=== PATIENT | female | born 1970 | race Caucasian/White ===

== ENCOUNTER → 2022-04-26 12:31 | Outpatient (CLI) | payer SELFPAY ==
[2022-04-30 07:19] LABS: QuantiFERON Mitogen Value >10.00 IU/mL (.); QuantiFERON Nil Value 0.03 IU/mL (.); QuantiFERON TB Gold Plus Negative (Negative); QuantiFERON TB1 Ag Value 0.05 IU/mL (.); QuantiFERON TB2 Ag Value 0.08 IU/mL (.)
== END ==
DX: Z02.1 Encounter for pre-employment examination (principal)
CPT/HCPCS: 36415; 86480

== ENCOUNTER → 2022-05-23 16:15 | Outpatient (CLI) | payer OTHER, SELFPAY ==
--- NOTE | 2022-05-23 | DI.MG.S_ITS ---
BILATERAL DIGITAL SCREENING MAMMOGRAM 3D/2D WITH CAD: 05/23/2022 CLINICAL: Routine screening. Comparison is made to exams dated: 05/23/2022 mammogram - [facility], 05/11/2021 mammogram, and 02/16/2020 mammogram - outside location. Both breasts are almost entirely fatty (category a/<25% glandular tissue). Current study was also evaluated with a Computer Aided Detection (CAD) system. No significant masses, calcifications, or other findings are seen in either breast. There has been no significant interval change. IMPRESSION: NEGATIVE There is no mammographic evidence of malignancy. A 1 year screening mammogram is recommended. Based on the Tyrer Cuzick model (a risk assessment model) the patient's lifetime risk is 6.3% and her 10 year risk is 1.6%. According to the ACR, ACS, and NCCN guidelines, an annual breast MRI exam along with mammogram is recommended if the patient's lifetime risk is 20% or greater. This exam was interpreted at Station ID: [id number]. NOTE: For mammograms, a report in lay terms will be sent to the patient. Approximately 15% of breast malignancies will not be visualized mammographically. In the management of a palpable breast mass, a negative mammogram must not discourage biopsy of a clinically suspicious lesion. Electronically Signed By: Genie pastor/leonie:05/24/2022 16:08:04 letter sent: Normal Exam ACR BI-RADS Category 1: Negative 3341F
== END ==
PROVIDERS: PCP Family Medicine; Referring Provider Family Medicine; Visit Provider Family Medicine
DX: Z12.31 Encounter for screening mammogram for malignant neoplasm of breast (principal)
CPT/HCPCS: 77063; 77067

== ENCOUNTER 2022-08-29 06:22 | Emergency (ER) | payer OTHER, SELFPAY ==
[2022-08-29] VITALS (14 sets, daily range): BP systolic 110–130; BP diastolic 55–77; PULSE 56–89; RESP 7–48; TEMP 36.6; O2SAT 99–100; BMI 28.7
--- NOTE | 2022-08-29 06:23 | ED_ITS ---
HPI - General Adult <Julia Barnes MD - Last Filed: 08/29/22 18:05> General Chief complaint: Abdominal Pain Stated complaint: upper abd pain and chest pain Time Seen by Provider: 08/29/22 06:23 History of Present Illness HPI narrative: 50-year-old woman perimenopause, currently on Cymbalta presents with abdominal/chest pain starting in the epigastrium radiating up into the right side of her chest and through to her back. She describes it as sharp and quite uncomfortable currently an 8/10. She isn't particularly nauseated but she will have episodes where she simply gets up and vomits. She finds that standing up and leaning forward seems to help with the pain. Exertion does not make it worse. She is had similar episodes in the past and in April of this year was at [facility] and had a stress test and a stress echo and was given a clean bill of health from her hvac service tech with recommends to follow-up with GI. She has not yet done so. She notes that she is had 2 episodes of chest pain similar to this in 2022 this time being the most severe and certainly lasting longer. She has not yet had an ultrasound to look at her gallbladder or look at other noncardiac etiology of her symptoms. She feels like she needs to have diarrhea but has not actually done so. She describes hot flashes which are consistent with her perimenopause, no myalgias, no palpitations no cough. She does have a history of migraines that have not been particularly troublesome recently. Related Data Home Medications Medication Instructions Recorded Confirmed cholecalciferol (vitamin D3) 125 125 mcg PO DAILY 08/29/22 08/29/22 mcg (5,000 unit) tablet (Vitamin D3) duloxetine 60 mg capsule,delayed 60 mg PO DAILY 08/29/22 08/29/22 release estradiol 0.1 mg/24 hr semiweekly 1 patch topical 2XW 08/29/22 08/29/22 transdermal patch omega-3 fatty acids 1,000 mg PO DAILY 08/29/22 08/29/22 ondansetron 4 mg disintegrating 4 mg PO Q6H PRN Nausea 08/29/22 08/29/22 tablet progesterone micronized 200 mg 200 mg PO DAILY 08/29/22 08/29/22 capsule sumatriptan succinate 50 mg tablet 50 mg PO Q12H PRN Migraine Headache 08/29/22 08/29/22 sumatriptan succinate 6 mg/0.5 mL 6 mg SUBCUT Q12H PRN Migraine 08/29/22 08/29/22 subcutaneous solution Headache turmeric (bulk) 95 % powder 1 ea miscellaneous DAILY 08/29/22 08/29/22 (Curcumin) Previous Rx's Medication Instructions Recorded hydrocodone 5 mg-acetaminophen 325 1 tab PO Q6H PRN pain #20 tabs 08/29/22 mg tablet metoclopramide HCl 10 mg tablet 10 mg PO Q6H PRN nausea and 08/29/22 vomiting #20 tabs Allergies Allergy/AdvReac Type Severity Reaction Status Date / Time No Known Drug Allergies Allergy Verified 08/29/22 06:45 Review of Systems <Julia Barnes MD - Last Filed: 08/29/22 18:05> Review of Systems Narrative: Pertinent positive and negative findings as per HPI Patient History <Julia Barnes MD - Last Filed: 08/29/22 18:05> Medical History (Updated 08/29/22 @ 11:43 by Jesus Allison MD) Migraine Social History Smoking Status: Never smoker Exam <Julia Barnes MD - Last Filed: 08/29/22 18:05> Initial Vital Signs Initial Vital Signs: Vital Signs Pulse Rate 62 08/29/22 06:29 Pulse Oximetry 100 08/29/22 06:29 General: Healthy appearing, in no acute distress. Able to give a complete and coherent history. Well-nourished well-developed HEENT: Moist mucous membranes, normal sclera with reactive pupils, Neck: No JVD, supple Respiratory: Lungs are clear to auscultation, no wheezing no rales no rhonchi. Full and symmetrical air movement Cardiac: Regular rate and rhythm no murmurs no bruits Abdomen: Soft, pain is described as midepigastric is not reproducible with palpation. She does not any tenderness along the costochondral borders. No specific tenderness over her right upper quadrant. Good bowel tones, no flank pain Skin: Warm and dry, no rashes Neurologic: Grossly neurologically intact with no obvious asymmetries or abnormalities Extremities: No trauma, well perfused Psych: Cooperative, appropriate insight and affect <Jesus Allison MD - Last Filed: 08/30/22 07:18> Initial Vital Signs Initial Vital Signs: Vital Signs Pulse Rate 62 08/29/22 06:29 Pulse Oximetry 100 08/29/22 06:29 Course <Julia Barnes MD - Last Filed: 08/29/22 18:05> Orders Ordered: Discontinued Medications Hydrocodone Bitart/Acetaminophen (Hydrocodone/Acet 5/325 Tablet) 1 tab PO NOW ONE Stop: 08/29/22 10:53 Last Admin: 08/29/22 10:56 Dose: 1 tab Documented By: RAMÓN Eckert Hydrox/Mg Hydrox/Simethicone 20 ml/ Lidocaine HCl 15 ml 0 ml PO NOW ONE Stop: 08/29/22 06:40 Last Admin: 08/29/22 06:57 Dose: 10 ml Documented By: Sodium Chloride (Normal Saline 0.9%) 1,000 mls @ 1,000 mls/hr IV BOLUS ONE Stop: 08/29/22 10:38 Last Infusion: 08/29/22 10:59 Dose: 0 mls/hr Documented By: Admin: 08/29/22 09:59 Dose: 1,000 mls/hr Documented By: VON Ketorolac Tromethamine (Ketorolac 30 Mg/Ml Vial) 15 mg IV NOW ONE Stop: 08/29/22 07:17 Last Admin: 08/29/22 07:20 Dose: 15 mg Documented By: PAULINE Metoclopramide HCl (Metoclopramide 10 Mg/2 Ml Inj) 10 mg IV NOW ONE Stop: 08/29/22 06:40 Last Admin: 08/29/22 06:46 Dose: 10 mg Documented By: Morphine Sulfate (Morphine 4 Mg/Ml Inj) 4 mg IV NOW ONE Stop: 08/29/22 07:48 Last Admin: 08/29/22 08:03 Dose: 4 mg Documented By: NR Morphine Sulfate (Morphine 4 Mg/Ml Inj) 4 mg IV NOW ONE Stop: 08/29/22 09:40 Last Admin: 08/29/22 09:58 Dose: 4 mg Documented By: NR Ondansetron HCl (Ondansetron 4 Mg/2 Ml Inj) 4 mg IV NOW ONE Stop: 08/29/22 07:17 Last Admin: 08/29/22 07:20 Dose: 4 mg Documented By: PAULINE Pantoprazole Sodium (Pantoprazole 40 Mg Vial) 40 mg IV NOW ONE Stop: 08/29/22 07:22 Last Admin: 08/29/22 07:23 Dose: 40 mg Documented By: PAULINE Vital Signs Vital signs: Vital Signs - 8 hr 08/29/22 10:30 08/29/22 10:30 08/29/22 11:00 Pulse Rate 61 59 L Respiratory Rate 28 H 33 H Blood Pressure 110/71 Pulse Oximetry 99 100 08/29/22 11:01 08/29/22 11:01 Pulse Rate 56 L Respiratory Rate 16 Blood Pressure 123/69 Pulse Oximetry 100 <Jesus Allison MD - Last Filed: 08/30/22 07:18> Orders Ordered: Discontinued Medications Hydrocodone Bitart/Acetaminophen (Hydrocodone/Acet 5/325 Tablet) 1 tab PO NOW ONE Stop: 08/29/22 10:53 Last Admin: 08/29/22 10:56 Dose: 1 tab Documented By: RAMÓN Al Hydrox/Mg Hydrox/Simethicone 20 ml/ Lidocaine HCl 15 ml 0 ml PO NOW ONE Stop: 08/29/22 06:40 Last Admin: 08/29/22 06:57 Dose: 10 ml Documented By: Sodium Chloride (Normal Saline 0.9%) 1,000 mls @ 1,000 mls/hr IV BOLUS ONE Stop: 08/29/22 10:38 Last Infusion: 08/29/22 10:59 Dose: 0 mls/hr Documented By: Admin: 08/29/22 09:59 Dose: 1,000 mls/hr Documented By: VON Ketorolac Tromethamine (Ketorolac 30 Mg/Ml Vial) 15 mg IV NOW ONE Stop: 08/29/22 07:17 Last Admin: 08/29/22 07:20 Dose: 15 mg Documented By: PAULINE Metoclopramide HCl (Metoclopramide 10 Mg/2 Ml Inj) 10 mg IV NOW ONE Stop: 08/29/22 06:40 Last Admin: 08/29/22 06:46 Dose: 10 mg Documented By: Morphine Sulfate (Morphine 4 Mg/Ml Inj) 4 mg IV NOW ONE Stop: 08/29/22 07:48 Last Admin: 08/29/22 08:03 Dose: 4 mg Documented By: VON Morphine Sulfate (Morphine 4 Mg/Ml Inj) 4 mg IV NOW ONE Stop: 08/29/22 09:40 Last Admin: 08/29/22 09:58 Dose: 4 mg Documented By: VON Ondansetron HCl (Ondansetron 4 Mg/2 Ml Inj) 4 mg IV NOW ONE Stop: 08/29/22 07:17 Last Admin: 08/29/22 07:20 Dose: 4 mg Documented By: PAULINE Pantoprazole Sodium (Pantoprazole 40 Mg Vial) 40 mg IV NOW ONE Stop: 08/29/22 07:22 Last Admin: 08/29/22 07:23 Dose: 40 mg Documented By: PAULINE Vital Signs Vital signs: Vital Signs - 8 hr 08/29/22 10:30 08/29/22 10:30 08/29/22 11:00 Pulse Rate 61 59 L Respiratory Rate 28 H 33 H Blood Pressure 110/71 Pulse Oximetry 99 100 08/29/22 11:01 08/29/22 11:01 Pulse Rate 56 L Respiratory Rate 16 Blood Pressure 123/69 Pulse Oximetry 100 Medical Decision Making <Julia Barnes MD - Last Filed: 08/29/22 18:05> Lab Data 08/29/22 06:38 08/29/22 06:38 Labs: Lab Results 08/29/22 08/29/22 08/29/22 Range/Units 06:38 06:38 06:38 WBC 7.9 (4.5-11.0) X10^3/uL RBC 4.44 (4.0-5.2) X10^6/uL Hgb 13.5 (12.0-16.0) g/dL Hct 39.9 (36-46) % MCV 89.9 (80-100) fL MCH 30.5 (26-34) PG MCHC 33.9 (30-36) % RDW 13.1 (11.6-14.8) % Plt Count 228 (150-400) X10^3/uL Neut % (Auto) 81.8 H (50-75) % Lymph % (Auto) 12.4 L (25-40) % Sterling % (Auto) 4.9 (3-14) % Eos % (Auto) 0.7 L (2-4) % Baso % (Auto) 0.2 (0-2) % Neut # (Auto) 6500 (0561-8626) /uL Lymph # (Auto) 1000 L (0108-5949) /uL Sterling # (Auto) 400 (0-900) /uL Eos # (Auto) 100 (0-450) /uL Baso # (Auto) 0 (0-100) /uL Sodium 137 (137-145) mmol/L Potassium 3.9 (3.4-5.1) mmol/L Chloride 105 (98-107) mmol/L Carbon Dioxide 24 (22-32) mmol/L BUN 13 (7-17) mg/dL Creatinine 0.71 (0.52-1.04) mg/dL Estimated GFR > 60 (>60) mL/min BUN/Creatinine Ratio 18.3 (6-22) Glucose 134 H (70-100) mg/dL Calcium 9.1 (8.4-10.2) mg/dL Total Bilirubin 0.5 (0.2-1.3) mg/dL AST 31 (14-36) IU/L ALT 28 (<35) IU/L Alkaline Phosphatase 110 (38-126) U/L Troponin I < 0.012 (0.01-0.034) ng/mL Total Protein 7.5 (6.3-8.2) g/dL Albumin 4.4 (3.5-5.0) g/dL Globulin 3.1 (1.7-4.1) g/dL Albumin/Globulin Ratio 1.4 (1.0-2.8) Lipase 55 (23-300) U/L [facility] Narrative Medical decision making narrative: CC: Epigastric pain radiating to her right upper quadrant present all night. 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 Pertinent findings: Independently reviewed EKG as above Imaging studies independently reviewed: Consultations: Treatments: Re-evaluations: Discussion: <Jesus Allison MD - Last Filed: 08/30/22 07:18> Lab Data Labs: Lab Results 08/29/22 08/29/22 08/29/22 Range/Units 06:38 06:38 06:38 WBC 7.9 (4.5-11.0) X10^3/uL RBC 4.44 (4.0-5.2) X10^6/uL Hgb 13.5 (12.0-16.0) g/dL Hct 39.9 (36-46) % MCV 89.9 (80-100) fL MCH 30.5 (26-34) PG MCHC 33.9 (30-36) % RDW 13.1 (11.6-14.8) % Plt Count 228 (150-400) X10^3/uL Neut % (Auto) 81.8 H (50-75) % Lymph % (Auto) 12.4 L (25-40) % Sterling % (Auto) 4.9 (3-14) % Eos % (Auto) 0.7 L (2-4) % Baso % (Auto) 0.2 (0-2) % Neut # (Auto) 6500 (6406-0444) /uL Lymph # (Auto) 1000 L (5145-1564) /uL Sterling # (Auto) 400 (0-900) /uL Eos # (Auto) 100 (0-450) /uL Baso # (Auto) 0 (0-100) /uL Sodium 137 (137-145) mmol/L Potassium 3.9 (3.4-5.1) mmol/L Chloride 105 (98-107) mmol/L Carbon Dioxide 24 (22-32) mmol/L BUN 13 (7-17) mg/dL Creatinine 0.71 (0.52-1.04) mg/dL Estimated GFR > 60 (>60) mL/min BUN/Creatinine Ratio 18.3 (6-22) Glucose 134 H (70-100) mg/dL Calcium 9.1 (8.4-10.2) mg/dL Total Bilirubin 0.5 (0.2-1.3) mg/dL AST 31 (14-36) IU/L ALT 28 (<35) IU/L Alkaline Phosphatase 110 (38-126) U/L Troponin I < 0.012 (0.01-0.034) ng/mL Total Protein 7.5 (6.3-8.2) g/dL Albumin 4.4 (3.5-5.0) g/dL Globulin 3.1 (1.7-4.1) g/dL Albumin/Globulin Ratio 1.4 (1.0-2.8) Lipase 55 (23-300) U/L Imaging Data Ultrasound gallbladder: Radiologist's Impression: IMPRESSION:? Nonmobile stone within the gallbladder, with gallbladder hydrops.? Negative sonographic Carballo sign and no wall thickening.? Very early acute cholecystitis not entirely excluded, given cholelithiasis and gallbladder distention. ? Mild dilation of the common bile duct, which may indicate choledocholithiasis.? Correlate with bilirubin and consider MRCP. ? ? ? Dictated by: Erick Beltran M.D. on 08/29/2022 at 8:06 ? ? Approved by: Erick Beltran M.D. on 08/29/2022 at 8:08 ? CT chest abdomen pelvis: Radiologist's Impression: IMPRESSION:? ? 1.? Cholelithiasis with gallbladder distension, but no wall thickening.? Findings may indicate early acute cholecystitis in the appropriate clinical setting. ? 2.? Fecal debris within the small-bowel, usually indicating small intestinal bacterial overgrowth versus slow transit. ? 3.? Colonic diverticulosis without evidence of diverticulitis. ? ? Dictated by: Erick Beltran M.D. on 08/29/2022 at 8:13 ? ? Approved by: Erick Beltran M.D. on 08/29/2022 at 8:18 ? MDM Narrative Medical decision making narrative: CC: Epigastric pain radiating to her right upper quadrant present all night. 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 Pertinent findings: WBC 7.9 hemoglobin 13.5 AST 31 ALT 28 alkaline phosphatase 110 GFR greater than 60 lipase 55 Independently reviewed EKG sinus bradycardia rate [address] elevation or depression Imaging studies independently reviewed: Ultrasound gallbladder possible early cholecystitis. Cholelithiasis noted. Enlarged common bile duct. CT chest abdomen pelvis cholelithiasis with gallbladder distention. No wall thickening. Possible early acute cholecystitis. Consultations: Treatments: Reglan Zofran GI cocktail Toradol morphine, normal saline Re-evaluations: 7:10 a.m.. Spoke with patient and sister. At this time ultrasound is at bedside getting ready to do exam. Patient states she threw up the GI cocktail. Would like to try Toradol as she is had this in the past and has been effective for her variable pain. She is not on any PPI regularly. She states she takes it consistently. She is never had visit with gastroenterology services yet. She is not had endoscopy of the stomach. Patient is a nurse practitioner. 7:45 a.m.. Updated patient. Ultrasound is pending results. Possible gallstone in the cystic duct. I will speak with general surgeon or further testing /MRCP/ERCP. Toradol has helped a little bit but she does desire morphine at this time. 8:45 a.m.. Spoke with patient. She would like to have surgery today if possible. She would like conversation with Dr. Johnson if possible. Pain is better now after morphine. 9:40 a.m.. Spoke with patient. Pain is returning. She does understand option to admit for pain control and she does understand no operating schedule available today. 11:47 a.m.. Spoke with patient and sister and supervisor sunglasses in room. Pain is 3/10. She feels much better than before. She feels good enough she states to go to t he office with General surgery now. Sister is driving. Discussion: 8:[address] Johnson, she is in operating room at this time however she states patient could be managed outpatient. Does not need MRCP. She has clinic this afternoon and may be able to see patient 8:[address] Johnson again, she will see patient after completed with current case in the operating room 9:[address] Johnson called back. The operating room is full on schedule. No surgery today. Admit to hospitalist if need for pain control. Otherwise patient needs to see her in the clinic today to schedule for surgery tomorrow or Saturday. Appropriate for discharge. Patient has appointment now today at 12 noon. With General surgery. Pain is controlled. Prescription pain medication and Reglan prescribed. Patient states Shorty usually constipates her. She agrees with Reglan. Return precautions reviewed. They desire discharge. Estefany: Sign-out from Dr. Roth, patient here for epigastric pain. Patient has had echo stress test this year. Was informed to follow up with gastroenterology services. Labs are pending ultrasound gallbladder pending. EKG done and is reassuring. GI cocktail is ordered. Discharge Plan Departure Patient Disposition: Home Clinical Impression: Cholelithiasis Instructions: DI for Gallstones Activity Restrictions/Additional Instructions: No driving operating machinery today or when taking prescribed pain medication. Please go directly to Dr. Johnson/Dr. Villasenor office now. You have an appointment at 12 noon. Return if worse if any questions or concerns Prescriptions: New hydrocodone-acetaminophen 5-325 mg tablet 1 tab PO Q6H PRN (Reason: pain) Qty: 20 0RF metoclopramide HCl 10 mg tablet 10 mg PO Q6H PRN (Reason: nausea and vomiting) Qty: 20 0RF No Action estradiol 0.1 mg/24 hr patch semiweekly 1 patch topical 2XW Patient Comments: Apply 1 patch to skin every three days as directed sumatriptan succinate 50 mg tablet 50 mg PO Q12H PRN (Reason: Migraine Headache) Patient Comments: Take 1 tablet by mouth four times a day as needed for pain sumatriptan succinate 6 mg/0.5 mL solution 6 mg SUBCUT Q12H PRN (Reason: Migraine Headache) Patient Comments: Inject 1/2 ml subcutaneously twice a day as needed for pain progesterone micronized 200 mg capsule 200 mg PO DAILY Patient Comments: TAKE 1 CAPSULE BY MOUTH EVERY NIGHT FOR THE FIRST 10 DAYS OF THE MONTH ondansetron 4 mg tablet,disintegrating 4 mg PO Q6H PRN (Reason: Nausea) Patient Comments: Take 1 tablet By Mouth every six to eight hours Fish Oil Capsule 1,000 mg PO DAILY duloxetine 60 mg capsule,delayed release(DR/EC) 60 mg PO DAILY Patient Comments: Take 1 capsule By Mouth once a day Curcumin 95 % Powder 1 ea MISCELLANEOUS DAILY cholecalciferol (vitamin D3) [Vitamin D3] 125 mcg (5,000 unit) Tablet 125 mcg PO DAILY Referrals: Alex Villasenor MD [Physician] - Twila Johnson MD [Physician] - Shannan Bustos MD [Primary Care Provider] - Stand Alone Forms: Patient Portal/API
--- NOTE | 2022-08-29 06:40 | DI.US.S_ITS ---
PROCEDURE: US ABDOMEN LIMITED INDICATIONS: RUQ pain, ? gallstone TECHNIQUE: Real-time scanning was performed of the abdominal and retroperitoneal organs, with image documentation. COMPARISON: None. FINDINGS: Liver: Liver is normal in size and homogeneous in echotexture. Gallbladder: There is a nonmobile stone in the gallbladder neck. Mobile stone within the fundus. Mild gallbladder hydrops. No wall thickening. Negative sonographic Carballo sign. Biliary ducts: Intrahepatic bile ducts are non-dilated. Extrahepatic bile duct caliber measures 10 mm. Normal is 6-7 mm or less in diameter, or 10 mm or less post-cholecystectomy. Pancreas: Visualized portions of the pancreas are sonographically normal. Right kidney: Normal size and echogenicity. No hydronephrosis. Miscellaneous: No free abdominal fluid. IMPRESSION: Nonmobile stone within the gallbladder, with gallbladder hydrops. Negative sonographic Carballo sign and no wall thickening. Very early acute cholecystitis not entirely excluded, given cholelithiasis and gallbladder distention. Mild dilation of the common bile duct, which may indicate choledocholithiasis. Correlate with bilirubin and consider MRCP. Dictated by: Erick Beltran M.D. on 08/29/2022 at 8:06 Approved by: Erick Beltran M.D. on 08/29/2022 at 8:08
[2022-08-29] MEDS: METOCLOPRAMIDE 10 MG/2 ML INJ IV (06:46)
[2022-08-29 06:48] LABS: Add Manual Diff / Slide Review NO; Basophils Absolute Auto 0 /uL (0-100); Basophils Percent Auto 0.2 % (0-2); Eosinophils Absolute Auto 100 /uL (0-450); Eosinophils Percent Auto 0.7 % (2-4); Hematocrit 39.9 % (36-46); Hemoglobin 13.5 g/dL (12.0-16.0); Lymphocytes Absolute Auto 1000 /uL (1100-4500); Lymphocytes Percent Auto 12.4 % (25-40); Mean Corpuscular HGB Conc 33.9 % (30-36); Mean Corpuscular Hemoglobin 30.5 PG (26-34); Mean Corpuscular Volume 89.9 fL (80-100); Monocytes Absolute Auto 400 /uL (0-900); Monocytes Percent Auto 4.9 % (3-14); Neutrophils Absolute Auto 6500 /uL (1500-7000); Neutrophils Percent Auto 81.8 % (50-75); Platelet Count 228 X10^3/uL (150-400); Red Blood Cell Count 4.44 X10^6/uL (4.0-5.2); Red Cell Distribution Width 13.1 % (11.6-14.8); White Blood Cell Count 7.9 X10^3/uL (4.5-11.0)
[2022-08-29 06:55] LABS: Lipase 55 U/L (23-300)
[2022-08-29 06:57] LABS: Alanine Aminotransferase 28 IU/L (<35); Albumin 4.4 g/dL (3.5-5.0); Albumin Globulin Ratio 1.4 (1.0-2.8); Alkaline Phosphatase 110 U/L (38-126); Aspartate Aminotransferase 31 IU/L (14-36); BUN Creatinine Ratio 18.3 (6-22); Bilirubin Total 0.5 mg/dL (0.2-1.3); Blood Urea Nitrogen 13 mg/dL (7-17); Calcium 9.1 mg/dL (8.4-10.2); Carbon Dioxide 24 mmol/L (22-32); Chloride 105 mmol/L (98-107); Estimated Glomerular Filt Rate > 60 mL/min (>60); Globulin 3.1 g/dL (1.7-4.1); Glucose 134 mg/dL (70-100); HEMOLYSIS 22 (0-50); Potassium 3.9 mmol/L (3.4-5.1); Sodium 137 mmol/L (137-145); Total Protein 7.5 g/dL (6.3-8.2)
[2022-08-29] MEDS: MAG HYDROX/ALUMINUM/SIMETH SUS 20 ML, LIDOCAINE VISCOUS 2% 15 ML PO (06:57)
--- NOTE | 2022-08-29 07:07 | PC.NURSE ---
Pt immediately vomited after GI coctail. In position with pain. made aware.
[2022-08-29 07:08] LABS: Troponin I < 0.012 ng/mL (0.01-0.034)
[2022-08-29] MEDS: ONDANSETRON 4 MG/2 ML INJ IV (07:20)
[2022-08-29] MEDS: KETOROLAC 30 MG/ML VIAL 15 MG IV (07:20)
[2022-08-29] MEDS: PANTOPRAZOLE 40 MG VIAL IV (07:23)
--- NOTE | 2022-08-29 07:49 | DI.CT.S_ITS ---
PROCEDURE: CT CHEST ABD PEL W CON INDICATIONS: Epigastric pain lower abdominal pain/GI bleed TECHNIQUE: After the administration of intravenous contrast, axial sections acquired from the supraclavicular neck to the pubic symphysis. Coronal and sagittal reformats were performed. For radiation dose reduction, the following was used: automated exposure control, adjustment of mA and/or kV according to patient size. COMPARISON: None. FINDINGS: Image quality: Excellent. CHEST: Lower Neck: No enlarged lymph nodes. Thyroid: Within normal limits. Axillae: No enlarged lymph nodes. Chest Wall: Unremarkable. Lungs and Airways: A few solid pulmonary nodules. Largest is a 4.5 mm juxtapleural nodule in the right middle lobe (series 3, image 198). No consolidation. No effusions. Pleura: No pneumothorax or pleural effusions. Heart: Heart size is normal. No pericardial effusion. Thoracic Vessels: The aorta and pulmonary arteries demonstrate normal size. Mediastinum and Kaitlin: No enlarged lymph nodes. Esophagus: No wall thickening. Trace hiatal hernia. ABDOMEN: Liver: Unremarkable. Gallbladder: Cholelithiasis with mild gallbladder distention but no wall thickening. No pericholecystic edema. Biliary ducts: Unremarkable. Pancreas: Unremarkable. Spleen: Unremarkable. Adrenal Glands: Unremarkable. Kidneys and Ureters: Unremarkable. Stomach and Bowel: Stomach, small bowel loops, and colon are unremarkable. Normal appendix. Colonic diverticulosis without evidence of diverticulitis. Fecal debris within the small bowel. Peritoneum: No abnormal intraperitoneal fluid. No free air. Ventral Wall: No hernia. Abdominal Nodes: No retroperitoneal or mesenteric adenopathy by size criteria. Vessels: Aorta and inferior vena cava are normal in size. PELVIS: Pelvic Organs: Unremarkable. Bladder: Unremarkable. Pelvic Nodes: No enlarged lymph nodes. Miscellaneous: No inguinal hernias are seen. Bones: Unremarkable. IMPRESSION: 1. Cholelithiasis with gallbladder distension, but no wall thickening. Findings may indicate early acute cholecystitis in the appropriate clinical setting. 2. Fecal debris within the small-bowel, usually indicating small intestinal bacterial overgrowth versus slow transit. 3. Colonic diverticulosis without evidence of diverticulitis. Dictated by: Erick Beltran M.D. on 08/29/2022 at 8:13 Approved by: Erick Beltran M.D. on 08/29/2022 at 8:18
[2022-08-29] MEDS: MORPHINE 4 MG/ML INJ IV ×2 (08:03→09:58)
[2022-08-29] MEDS: SODIUM CHLORIDE 0.9% 1,000 ML 1000 ML IV (09:59)
[2022-08-29] MEDS: HYDROCODONE/ACET 5/325 TABLET 1 TAB PO (10:56)
== END 2022-08-29 11:54 | disposition home or self-care (01) ==
PROVIDERS: Emergency Medicine; Emergency Provider Emergency Medicine; PCP Family Medicine
DX: K80.20 Calculus of gallbladder without cholecystitis without obstruction (principal)
CPT/HCPCS: 36415; 71260; 74177; 76705; 80053; 83690; 84484; 85025; 93005; 96361; 96374; 96375; 96376; 99284; C9113; J1885; J2270; J2405; J2765

== ENCOUNTER 2022-08-30 14:12 | Day surgery (SDC) | payer OTHER, SELFPAY ==
[2022-08-30] VITALS (9 sets, daily range): BP systolic 103–142; BP diastolic 62–90; PULSE 74–86; RESP 10–16; TEMP 36.3–37.1; O2SAT 95–100; BMI 30.2
--- NOTE | 2022-08-30 | PATH_ITS ---
[facility] Accession Number: [id number] No. of containers..01 Tissue . 01 Material submitted: . gallbladder - GALLLADDER . 01 Diagnosis: Gallbladder, Cholecystectomy: Acute and chronic cholecystitis and cholelithiasis. Negative for dysplasia and neoplasia. MRV 09/04/2022 1847 Local . 01 Electronically signed: . Twila Metzger MD, Pathologist NPI- [id number] . 01 Gross description: . The specimen is received in formalin labeled with the patient's name, , and gallbladder, and consists of an intact gallbladder measuring 8.5 x 3.9 x 2.5 cm. The serosa is hanna and smooth. The hepatic surface is rough and unremarkable. The cystic duct is received closed with a clamp, is inked blue, and no pericystic lymph node is identified. The lumen contains dark green mucoid bile and multiple yellow, bossellated calculi measuring up to 1.5 cm in greatest dimension, grossly obstructing the cystic duct. The mucosa is green and velvety with pinpoint yellow areas of discoloration and areas of denuded mucosa. No polyps or lesions are identified. The crawley average 0.4 cm thick. Manager Wound sections to include the cystic duct margin and full-thickness sections are submitted in cassette A1. ([id number]) /FRR 09/01/2022 1616 Local . 01 Pathologist provided ICD-10: K81.0 . 01 CPT . 789606 Specimen Comment: A courtesy copy of this report has been sent to [facility] Performed at: 01 [facility] [address] [place] [address] [address], [place], [place] [id number] MD Chriss Shelby MD Phone: [phone]
[2022-08-30] MEDS: LACTATED RINGERS 1,000 ML 42 ML IV ×2 (14:57→16:50)
[2022-08-30] MEDS: ACETAMINOPHEN IV 1,000 MG/100 ML VIAL 400 MG IV (14:58)
--- NOTE | 2022-08-30 15:44 | PM.HP.1 ---
History of Present Illness History of Present Illness Date Patient Seen: 08/30/22 Time Patient Seen: 15:44 Chief complaint: Laparoscopic Cholecystectomy Narrative: More than one episode of severe, sharp RUQ pain. Nausea and anorexia. Gallstones with possible gall bladder wall thickening on the last US study. [facility] Medical History Migraine Social History household members: family Smoking Status: Never smoker alcohol intake: current Meds Home Medications and Allergies Home Medications Medication Instructions Recorded Confirmed Type cholecalciferol (vitamin D3) 125 125 mcg PO DAILY 08/29/22 08/29/22 History mcg (5,000 unit) tablet (Vitamin D3) duloxetine 60 mg capsule,delayed 60 mg PO DAILY 08/29/22 08/30/22 History release estradiol 0.1 mg/24 hr semiweekly 1 patch topical 2XW 08/29/22 08/29/22 History transdermal patch hydrocodone 5 mg-acetaminophen 325 1 tab PO Q6H PRN pain #20 tabs 08/29/22 08/30/22 Rx mg tablet metoclopramide HCl 10 mg tablet 10 mg PO Q6H PRN nausea and 08/29/22 08/30/22 Rx vomiting #20 tabs omega-3 fatty acids 1,000 mg PO DAILY 08/29/22 08/30/22 History ondansetron 4 mg disintegrating 4 mg PO Q6H PRN Nausea 08/29/22 08/30/22 History tablet progesterone micronized 200 mg 200 mg PO DAILY 08/29/22 08/29/22 History capsule sumatriptan succinate 50 mg tablet 50 mg PO Q12H PRN Migraine Headache 08/29/22 08/30/22 History sumatriptan succinate 6 mg/0.5 mL 6 mg SUBCUT Q12H PRN Migraine 08/29/22 08/30/22 History subcutaneous solution Headache turmeric (bulk) 95 % powder 1 ea miscellaneous DAILY 08/29/22 08/29/22 History (Curcumin) Allergies Allergy/AdvReac Type Severity Reaction Status Date / Time No Known Drug Allergies Allergy Verified 08/29/22 06:45 Review of Systems Review of Systems ROS: Yes All systems reviewed with the patient and are negative except as otherwise documented Exam Vital Signs (past 8 hours): - 08/30/22 14:33 Temperature 98.7 F Pulse Rate 86 Respiratory Rate 16 Blood Pressure 123/77 Pulse Oximetry 98 Oxygen Delivery Method Room Air Oxygen Delivery Method Room Air Const General: cooperative, healthy appearing and comfortable Nutritional Appearance: average body habitus HENMT Head: normocephalic and atraumatic Ears: hearing grossly normal bilaterally Face and sinus: normal facial exam Eyes General: appearance normal, both eyes and all related structures Sclera: sclerae normal Neck Neck: trachea midline Chest Chest: normal inspection of the chest Resp Effort & Inspection: normal respiratory effort and able to speak in complete sentences Cardio Rate: regular rate Rhythm: regular rhythm GI Palpation: soft Skin General: elasticity normal Neuro Cognition: normal cognition Extrem General: full ROM Psych Mental Status: mental status grossly normal Judgment: judgment good Assessment & Plan Assessment & Plan narrative: Biliary colic Plan: laparoscopic cholecystectomy COVID-19 COVID-19 status: Negative Time Spent With Patient Time with patient: less than 30 minutes
--- NOTE | 2022-08-30 16:18 | SUR.OPER ---
Supine on padded OR bed, head on pillow, safety belt at thigh, left arm padded and tucked at side. Right arm secured on padded arm board <90 degrees abduction. Legs uncrossed. Padded footboard in place. Tape over blanket to secure lower legs.
[2022-08-30] MEDS: CEFAZOLIN VIAL 2 GM in SODIUM CHLORIDE 0.9% 100 ML IV (16:26)
[2022-08-30] MEDS: BUPIVACAINE 0.5% (PF) 30 ML, EPINEPHrine 0.15 MG INJ (16:31)
--- NOTE | 2022-08-30 16:52 | P.OP_ITS ---
Operative Date/Time/Diagnoses Date of procedure: 08/30/22 Time of procedure: 16:52 Pre-op diagnosis: Biliary colic, chronic cholecystitis Post-op diagnosis: same Procedure & Clinicians Procedure: Laparoscopic cholecystectomy Same procedure as scheduled: Yes Indications: Biliary colic, chronic recurrent cholecystitis Surgeon: Twila Johnson Senior Research Manager: Lopez Kent Click Yes if Unassisted: No Anesthesia Type: General Operative Notes Findings: Chronic cholecystitis gallstones Closure Type: primary Specimen(s): other Estimated Blood Loss (mL): 30 Procedure in detail: Preop diagnosis: Biliary colic, chronic, recurrent cholecystitis Postop diagnosis: Same Operative procedure: Laparoscopic cholecystectomy Surgeon: Char Johnson MD mortgage loan assistant: CHARLINE Howe Findings: Adhesions to the gallbladder. Evidence of chronic and recurrent cholecystitis with gallstones Procedure: Patient placed in a supine position. Prepped and draped in sterile fashion to expose her abdomen. Infraumbilical port site was placed using open technique a 12 mm port. Insufflation began all other ports were placed under direct vision. Adhesions were taken down bluntly and with electrocautery. Cystic duct was identified and dissected free. Cystic duct was clipped once distally, twice proximally and transected. There were 3 branches of cystic artery all of which were clipped once distally once proximally and transected. Gallbladder was then removed from the fossa with electrocautery. We did have bleeding related to adhesions which was treated with good success using electrocautery and a veil of Surgicel was placed at the end the procedure. Gallbladder was placed into an Endo-Catch bag through the infraumbilical port site it was taken out without spillage. I surveyed the abdomen for hemostasis and suctioned and irrigated to a clear return. All ports removed and closure began. Closure consisted of fascial closure with interrupted 0 Vicryl for infraumbilical port site. All skin was closed with a running 4-0 Vicryl. Steri-Strips and sterile dressings were placed. Patient was awakened, extubated, taken to recovery room in stable condition. Needle, instrument, sponge counts were correct. Specimen: Gallbladder Blood loss: 30 mL Complications: none Post-operative Condition: stable Disposition: PACU
[2022-08-30] MEDS: HYDROMORPHONE 2 MG INJ IV (17:35)
== END 2022-08-30 18:11 | disposition home or self-care (01) ==
PROVIDERS: PCP Family Medicine; Referring Provider Surgery; Visit Provider Surgery
PROC: 0FT44ZZ Resection of Gallbladder, Percutaneous Endoscopic Approach (ICD-10-PCS; CPT 47562; principal; 2022-08-30 15:15)
DX: K80.12 Calculus of gallbladder with acute and chronic cholecystitis without obstruction (principal)
CPT/HCPCS: 47562; J0131; J0171; J0690; J1100; J1170; J1885; J2250; J2405; J2704; J3010

== ENCOUNTER 2022-09-03 03:57 | Emergency (ER) | payer OTHER, SELFPAY ==
[2022-09-03] VITALS (23 sets, daily range): BP systolic 129–157; BP diastolic 65–84; PULSE 59–88; RESP 12–20; TEMP 36.2–37.1; O2SAT 95–98; BMI 29.5
--- NOTE | 2022-09-03 04:19 | DI.CT.S_ITS ---
PROCEDURE: CT ABDOMEN PELVIS W CON INDICATIONS: post emeka pain TECHNIQUE: After the administration of oral and IV contrast, axial sections were acquired from the lung bases to the pubic symphysis. Coronal and sagittal reformats were performed. For radiation dose reduction, the following was used: automated exposure control, adjustment of mA and/or kV according to patient size. COMPARISON: None. FINDINGS: Image quality: Excellent. Lung bases: Bibasilar atelectasis. Trace right pleural fluid. Right middle lobe pulmonary nodule measuring 0.4 cm, (5/3). Heart: No significant findings. ABDOMEN: Liver: No focal lesion. Trace perihepatic fluid. Small focus of gas anterior to the liver. Gallbladder: Surgically absent. There is a fluid collection in the gallbladder fossa measuring 5.3 x 3.7 x 2.7 cm, estimated volume of 28 cc. There is a small amount of gas within this collection. Biliary ducts: No biliary ductal dilatation. No pneumobilia. Pancreas: No pancreatic ductal dilatation. There is trace fluid density adjacent to the pancreatic head. Spleen: No splenomegaly. Adrenal Glands: No nodule. Kidneys and Ureters: No hydronephrosis. Enhance symmetrically. Stomach and Bowel: Diverticulosis. No diverticulitis identified. There is a small amount of free fluid in the pelvic cul-de-sac. This fluid is low-density. Normal appendix. No small bowel obstruction. Stomach is not distended. Peritoneum: No large volume ascites. No gross pneumoperitoneum. Trace free air in the upper abdomen is felt to be postsurgical in nature. Ventral Wall: No hernia. Trace stranding in the subcutaneous fat in the right abdomen. No fluid collection. Abdominal Nodes: No retroperitoneal or mesenteric adenopathy by size criteria. Vessels: Aorta and inferior vena cava are normal in size. PELVIS: Pelvic Organs: Anteverted uterus. Bladder: No stone. Pelvic Nodes: No enlarged lymph nodes. Miscellaneous: No inguinal hernias are seen. Bones: No suspicious lesion. Bilateral L5 pars defect. Anterolisthesis of L5 on S1 measuring 0.3 cm. IMPRESSION: 1. Post cholecystectomy. Small of fluid collection at the gallbladder fossa measuring at 5.3 cm in length and approximately 28 cc. There is a small amount of gas within this collection. Bile leak could have this appearance. Consider further evaluation with HIDA scan. 2. Trace right pleural effusion. 3. No small bowel obstruction. 4. Right middle lobe pulmonary nodule measuring 0.4 cm. This report is concordant with the overnight preliminary interpretation. Dictated by: Vasyl Mckinney M.D. on 09/03/2022 at 8:10 Approved by: Vasyl Mckinney M.D. on 09/03/2022 at 8:25
[2022-09-03] MEDS: ONDANSETRON 4 MG/2 ML INJ IV (04:35)
[2022-09-03] MEDS: MORPHINE 4 MG/ML INJ IV ×4 (04:35→14:42)
--- NOTE | 2022-09-03 04:35 | ED_ITS ---
HPI - Abdominal Pain <Claudia Sneha, DO - Last Filed: 09/08/22 01:33> General Chief Complaint: Abdominal Pain Stated Complaint: had surgery now has pain Time Seen by Provider: 09/03/22 04:13 Source: patient Mode of arrival: Ambulatory History of Present Illness HPI narrative: Patient 52-year-old female with recent cholecystectomy secondary to cholelithiasis presents today with abdominal pain. She had cholecystectomy on 08/30/2022. She reports that she is been doing well. Her pain has been fairly well controlled. She went to sleep and woke up with severe abdominal pain radiating up to her right shoulder. No nausea or vomiting but she felt extremely diaphoretic and nauseous. She is not had any fever. She feels like this is pain in her intestine. She still complains of pain although appears comfortable now. She had taken [place] at home arrival. Related Data Home Medications Medication Instructions Recorded Confirmed cholecalciferol (vitamin D3) 125 125 mcg PO DAILY 08/29/22 08/29/22 mcg (5,000 unit) tablet (Vitamin D3) duloxetine 60 mg capsule,delayed 60 mg PO DAILY 08/29/22 08/30/22 release estradiol 0.1 mg/24 hr semiweekly 1 patch topical 2XW 08/29/22 08/29/22 transdermal patch omega-3 fatty acids 1,000 mg PO DAILY 08/29/22 08/30/22 ondansetron 4 mg disintegrating 4 mg PO Q6H PRN Nausea 08/29/22 08/30/22 tablet progesterone micronized 200 mg 200 mg PO DAILY 08/29/22 08/29/22 capsule sumatriptan succinate 50 mg tablet 50 mg PO Q12H PRN Migraine Headache 08/29/22 08/30/22 sumatriptan succinate 6 mg/0.5 mL 6 mg SUBCUT Q12H PRN Migraine 08/29/22 08/30/22 subcutaneous solution Headache turmeric (bulk) 95 % powder 1 ea miscellaneous DAILY 08/29/22 08/29/22 (Curcumin) Previous Rx's Medication Instructions Recorded hydrocodone 5 mg-acetaminophen 325 1 tab PO Q6H PRN pain #20 tabs 08/29/22 mg tablet metoclopramide HCl 10 mg tablet 10 mg PO Q6H PRN nausea and 08/29/22 vomiting #20 tabs hydrocodone 5 mg-acetaminophen 325 1 tab PO Q6H PRN pain #30 tabs 08/30/22 mg tablet Allergies Allergy/AdvReac Type Severity Reaction Status Date / Time No Known Drug Allergies Allergy Verified 08/29/22 06:45 Review of Systems <DO Saroj Graves Last Filed: 09/08/22 01:33> Review of Systems ROS Unobtainable: All systems reviewed & are unremarkable except as noted in HPI and below Patient History <Claudia Hoover DO - Last Filed: 09/08/22 01:33> Medical History Migraine Social History household members: family Smoking Status: Never smoker alcohol intake: current Smoking Status: Never smoker alcohol intake frequency: a few times a month Substance Use Type: does not use Exam <DO Saroj Graves Last Filed: 09/08/22 01:33> Initial Vital Signs Initial Vital Signs: Vital Signs Temperature 97.1 F L 09/03/22 04:04 Pulse Rate 71 09/03/22 04:04 Respiratory Rate 20 09/03/22 04:04 Blood Pressure 151/72 H 09/03/22 04:04 Pulse Oximetry 98 09/03/22 04:04 Oxygen Delivery Method Room Air 09/03/22 04:04 GENERAL: Alert 52-year-old female appears comfortable no diaphoresis HEENT: Head atraumatic,EOMI, pupils reactive, face symmetric, mucous membranes CARDIOVASCULAR: Regular rate and rhythm without murmurs, rubs or gallops. RESPIRATORY: Breath sounds equal bilaterally, no wheezes rales or rhonchi. ABDOMEN: Soft, mild right upper quadrant pain no guarding or rebound incision sites are healing no evidence of infection. Negative Carballo sign EXTREMITIES: Normal range of motion, no clubbing or edema. Neurovascularly intact NEUROLOGICAL: Alert and oriented x4 SKIN: Warm, dry, no laceration, no petechiae, no rashes or lesions. <DO Saroj Springer Last Filed: 09/03/22 15:41> Initial Vital Signs Initial Vital Signs: Vital Signs Temperature 97.1 F L 09/03/22 04:04 Pulse Rate 71 09/03/22 04:04 Respiratory Rate 20 09/03/22 04:04 Blood Pressure 151/72 H 09/03/22 04:04 Pulse Oximetry 98 09/03/22 04:04 Oxygen Delivery Method Room Air 09/03/22 04:04 Course <Claudia Hoover DO - Last Filed: 09/08/22 01:33> Orders Ordered: Discontinued Medications Hydromorphone HCl (Hydromorphone 1 Mg Inj) 1 mg IV NOW ONE Stop: 09/03/22 04:19 Last Admin: 09/03/22 06:28 Dose: Not Given Documented By: JENNIFER Hydromorphone HCl (Hydromorphone 1 Mg Inj) 1 mg IV NOW ONE Stop: 09/03/22 11:29 Last Admin: 09/03/22 11:33 Dose: 1 mg Documented By: RANDI Hydromorphone HCl (Hydromorphone 1 Mg Inj) 1 mg IV NOW ONE Stop: 09/03/22 15:13 Last Admin: 09/03/22 16:10 Dose: 1 mg Documented By: LAURA Sodium Chloride (Normal Saline 0.9%) 1,000 mls @ 150 mls/hr IV CONT GONSALO Last Infusion: 09/03/22 16:15 Dose: 0 mls/hr Documented By: Admin: 09/03/22 13:45 Dose: 150 mls/hr Documented By: Infusion: 09/03/22 13:45 Dose: 0 mls/hr Documented By: Infusion: 09/03/22 11:56 Dose: 0 mls/hr Documented By: Admin: 09/03/22 05:22 Dose: 150 mls/hr Documented By: JENNIFER Piperacillin Sod/Tazobactam (Sod 4.5 gm/ Sodium Chloride) 100 mls @ 200 mls/hr IV NOW ONE Stop: 09/03/22 13:20 Last Infusion: 09/03/22 14:20 Dose: 0 mls/hr Documented By: Admin: 09/03/22 13:44 Dose: 200 mls/hr Documented By: RANDI Morphine Sulfate (Morphine 4 Mg/Ml Inj) 4 mg IV NOW ONE Stop: 09/03/22 04:26 Last Admin: 09/03/22 04:35 Dose: 4 mg Documented By: JENNIFER Morphine Sulfate (Morphine 4 Mg/Ml Inj) 4 mg IV NOW ONE Stop: 09/03/22 05:17 Last Admin: 09/03/22 05:22 Dose: 4 mg Documented By: JENNIFER Morphine Sulfate (Morphine 2 Mg/Ml Inj) 4 mg IV Q4HR PRN PRN Reason: Pain, Moderate (4-6) Last Admin: 09/03/22 08:07 Dose: 4 mg Documented By: RANDI Morphine Sulfate (Morphine 4 Mg/Ml Inj) 4 mg IV Q4HR PRN PRN Reason: Pain, Moderate (4-6) Last Admin: 09/03/22 13:02 Dose: 4 mg Documented By: RANDI Morphine Sulfate (Morphine 4 Mg/Ml Inj) 4 mg IV NOW ONE Stop: 09/03/22 11:22 Last Admin: 09/03/22 11:30 Dose: Not Given Documented By: AT Morphine Sulfate (Morphine 4 Mg/Ml Inj) 4 mg IV NOW ONE Stop: 09/03/22 14:39 Last Admin: 09/03/22 14:42 Dose: 4 mg Documented By: RANDI Ondansetron HCl (Ondansetron 4 Mg/2 Ml Inj) 4 mg IV NOW ONE Stop: 09/03/22 04:19 Last Admin: 09/03/22 04:35 Dose: 4 mg Documented By: JENNIFER Sumatriptan Succinate (Sumatriptan 6 Mg/0.5 Ml Vial) 6 mg SUBCUT NOW ONE Stop: 09/03/22 13:24 Last Admin: 09/03/22 13:43 Dose: 6 mg Documented By: RANDI Vital Signs Vital signs: Vital Signs - 8 hr 09/03/22 07:52 09/03/22 07:52 09/03/22 08:00 Temperature Pulse Rate 61 Respiratory Rate 18 Blood Pressure 139/65 130/65 Pulse Oximetry Oxygen Delivery Method 09/03/22 08:00 09/03/22 08:30 09/03/22 08:30 Temperature Pulse Rate 59 L 62 Respiratory Rate 14 13 Blood Pressure 141/70 H Pulse Oximetry Oxygen Delivery Method 09/03/22 09:00 09/03/22 09:00 09/03/22 09:30 Temperature Pulse Rate 61 61 Respiratory Rate 12 12 Blood Pressure 129/68 Pulse Oximetry Oxygen Delivery Method 09/03/22 10:00 09/03/22 10:00 09/03/22 10:30 Temperature Pulse Rate 62 Respiratory Rate 13 Blood Pressure 142/71 H 141/69 H Pulse Oximetry Oxygen Delivery Method 09/03/22 10:30 09/03/22 11:00 09/03/22 11:00 Temperature Pulse Rate 64 64 Respiratory Rate 12 12 Blood Pressure 139/70 Pulse Oximetry Oxygen Delivery Method 09/03/22 11:30 09/03/22 11:30 09/03/22 12:56 Temperature Pulse Rate 63 74 Respiratory Rate 13 Blood Pressure 139/69 Pulse Oximetry 95 Oxygen Delivery Method 09/03/22 12:57 09/03/22 12:57 09/03/22 13:00 Temperature Pulse Rate 74 70 Respiratory Rate Blood Pressure 157/74 H Pulse Oximetry 97 97 Oxygen Delivery Method 09/03/22 13:30 Temperature 98.7 F Pulse Rate 77 Respiratory Rate 18 Blood Pressure Pulse Oximetry 98 Oxygen Delivery Method Room Air <Kevin Jacobo DO - Last Filed: 09/03/22 15:41> Orders Ordered: Discontinued Medications Hydromorphone HCl (Hydromorphone 1 Mg Inj) 1 mg IV NOW ONE Stop: 09/03/22 04:19 Last Admin: 09/03/22 06:28 Dose: Not Given Documented By: JENNIFER Hydromorphone HCl (Hydromorphone 1 Mg Inj) 1 mg IV NOW ONE Stop: 09/03/22 11:29 Last Admin: 09/03/22 11:33 Dose: 1 mg Documented By: RANDI Hydromorphone HCl (Hydromorphone 1 Mg Inj) 1 mg IV NOW ONE Stop: 09/03/22 15:13 Last Admin: 09/03/22 16:10 Dose: 1 mg Documented By: LAURA Sodium Chloride (Normal Saline 0.9%) 1,000 mls @ 150 mls/hr IV CONT GONSALO Last Infusion: 09/03/22 16:15 Dose: 0 mls/hr Documented By: Admin: 09/03/22 13:45 Dose: 150 mls/hr Documented By: Infusion: 09/03/22 13:45 Dose: 0 mls/hr Documented By: Infusion: 09/03/22 11:56 Dose: 0 mls/hr Documented By: Admin: 09/03/22 05:22 Dose: 150 mls/hr Documented By: JENNIFER Piperacillin Sod/Tazobactam (Sod 4.5 gm/ Sodium Chloride) 100 mls @ 200 mls/hr IV NOW ONE Stop: 09/03/22 13:20 Last Infusion: 09/03/22 14:20 Dose: 0 mls/hr Documented By: Admin: 09/03/22 13:44 Dose: 200 mls/hr Documented By: RANDI Morphine Sulfate (Morphine 4 Mg/Ml Inj) 4 mg IV NOW ONE Stop: 09/03/22 04:26 Last Admin: 09/03/22 04:35 Dose: 4 mg Documented By: JENNIFER Morphine Sulfate (Morphine 4 Mg/Ml Inj) 4 mg IV NOW ONE Stop: 09/03/22 05:17 Last Admin: 09/03/22 05:22 Dose: 4 mg Documented By: JENNIFER Morphine Sulfate (Morphine 2 Mg/Ml Inj) 4 mg IV Q4HR PRN PRN Reason: Pain, Moderate (4-6) Last Admin: 09/03/22 08:07 Dose: 4 mg Documented By: RANDI Morphine Sulfate (Morphine 4 Mg/Ml Inj) 4 mg IV Q4HR PRN PRN Reason: Pain, Moderate (4-6) Last Admin: 09/03/22 13:02 Dose: 4 mg Documented By: RANDI Morphine Sulfate (Morphine 4 Mg/Ml Inj) 4 mg IV NOW ONE Stop: 09/03/22 11:22 Last Admin: 09/03/22 11:30 Dose: Not Given Documented By: LAURA Morphine Sulfate (Morphine 4 Mg/Ml Inj) 4 mg IV NOW ONE Stop: 09/03/22 14:39 Last Admin: 09/03/22 14:42 Dose: 4 mg Documented By: RANDI Ondansetron HCl (Ondansetron 4 Mg/2 Ml Inj) 4 mg IV NOW ONE Stop: 09/03/22 04:19 Last Admin: 09/03/22 04:35 Dose: 4 mg Documented By: JENNIFER Sumatriptan Succinate (Sumatriptan 6 Mg/0.5 Ml Vial) 6 mg SUBCUT NOW ONE Stop: 09/03/22 13:24 Last Admin: 09/03/22 13:43 Dose: 6 mg Documented By: RANDI Vital Signs Vital signs: Vital Signs - 8 hr 09/03/22 07:52 09/03/22 07:52 09/03/22 08:00 Temperature Pulse Rate 61 Respiratory Rate 18 Blood Pressure 139/65 130/65 Pulse Oximetry Oxygen Delivery Method 09/03/22 08:00 09/03/22 08:30 09/03/22 08:30 Temperature Pulse Rate 59 L 62 Respiratory Rate 14 13 Blood Pressure 141/70 H Pulse Oximetry Oxygen Delivery Method 09/03/22 09:00 09/03/22 09:00 09/03/22 09:30 Temperature Pulse Rate 61 61 Respiratory Rate 12 12 Blood Pressure 129/68 Pulse Oximetry Oxygen Delivery Method 09/03/22 10:00 09/03/22 10:00 09/03/22 10:30 Temperature Pulse Rate 62 Respiratory Rate 13 Blood Pressure 142/71 H 141/69 H Pulse Oximetry Oxygen Delivery Method 09/03/22 10:30 09/03/22 11:00 09/03/22 11:00 Temperature Pulse Rate 64 64 Respiratory Rate 12 12 Blood Pressure 139/70 Pulse Oximetry Oxygen Delivery Method 09/03/22 11:30 09/03/22 11:30 09/03/22 12:56 Temperature Pulse Rate 63 74 Respiratory Rate 13 Blood Pressure 139/69 Pulse Oximetry 95 Oxygen Delivery Method 09/03/22 12:57 09/03/22 12:57 09/03/22 13:00 Temperature Pulse Rate 74 70 Respiratory Rate Blood Pressure 157/74 H Pulse Oximetry 97 97 Oxygen Delivery Method 09/03/22 13:30 Temperature 98.7 F Pulse Rate 77 Respiratory Rate 18 Blood Pressure Pulse Oximetry 98 Oxygen Delivery Method Room Air MDM - Abdominal Pain <Claudia Hoover, DO - Last Filed: 09/08/22 01:33> Lab Data 09/03/22 13:20 09/03/22 13:20 Labs: Lab Results 09/03/22 09/03/22 09/03/22 Range/Units 04:25 04:25 04:25 WBC 9.3 (4.5-11.0) X10^3/uL RBC 4.14 (4.0-5.2) X10^6/uL Hgb 12.4 (12.0-16.0) g/dL Hct 37.0 (36-46) % MCV 89.3 (80-100) fL MCH 30.0 (26-34) PG MCHC 33.6 (30-36) % RDW 13.1 (11.6-14.8) % Plt Count 257 (150-400) X10^3/uL Neut % (Auto) 69.3 (50-75) % Lymph % (Auto) 19.6 L (25-40) % [place] % (Auto) 6.9 (3-14) % Eos % (Auto) 3.6 (2-4) % Baso % (Auto) 0.6 (0-2) % Neut # (Auto) 6400 (9794-1730) /uL Lymph # (Auto) 1800 (4166-6128) /uL [place] # (Auto) 600 (0-900) /uL Eos # (Auto) 300 (0-450) /uL Baso # (Auto) 100 (0-100) /uL Sodium 136 L (137-145) mmol/L Potassium 3.9 (3.4-5.1) mmol/L Chloride 103 (98-107) mmol/L Carbon Dioxide 25 (22-32) mmol/L BUN 13 (7-17) mg/dL Creatinine 0.72 (0.52-1.04) mg/dL Estimated GFR > 60 (>60) mL/min BUN/Creatinine Ratio 18.1 (6-22) Glucose 123 H (70-100) mg/dL Lactate 1.1 (0.7-2.1) mmol/L Calcium 8.5 (8.4-10.2) mg/dL Total Bilirubin 0.3 (0.2-1.3) mg/dL AST 24 (14-36) IU/L ALT 32 (<35) IU/L Alkaline Phosphatase 112 (38-126) U/L Total Protein 6.7 (6.3-8.2) g/dL Albumin 3.7 (3.5-5.0) g/dL Globulin 3.0 (1.7-4.1) g/dL Albumin/Globulin Ratio 1.2 (1.0-2.8) Lipase 37 (23-300) U/L SARS-CoV-2 (PCR) (Negative) 09/03/22 09/03/22 09/03/22 Range/Units 13:20 13:20 13:20 WBC 13.1 H (4.5-11.0) X10^3/uL RBC 4.42 (4.0-5.2) X10^6/uL Hgb 13.4 (12.0-16.0) g/dL Hct 40.2 (36-46) % MCV 90.9 (80-100) fL MCH 30.3 (26-34) PG MCHC 33.3 (30-36) % RDW 13.1 (11.6-14.8) % Plt Count 291 (150-400) X10^3/uL Neut % (Auto) 87.3 H (50-75) % Lymph % (Auto) 6.0 L (25-40) % [place] % (Auto) 6.3 (3-14) % Eos % (Auto) 0.2 L (2-4) % Baso % (Auto) 0.2 (0-2) % Neut # (Auto) 56953 H (8136-6872) /uL Lymph # (Auto) 800 L (5819-8567) /uL [place] # (Auto) 800 (0-900) /uL Eos # (Auto) 0 (0-450) /uL Baso # (Auto) 0 (0-100) /uL Sodium 137 (137-145) mmol/L Potassium 4.2 (3.4-5.1) mmol/L Chloride 102 (98-107) mmol/L Carbon Dioxide 27 (22-32) mmol/L BUN 8 (7-17) mg/dL Creatinine 0.64 (0.52-1.04) mg/dL Estimated GFR > 60 (>60) mL/min BUN/Creatinine Ratio 12.5 (6-22) Glucose 122 H (70-100) mg/dL Lactate (0.7-2.1) mmol/L Calcium 8.6 (8.4-10.2) mg/dL Total Bilirubin 0.7 (0.2-1.3) mg/dL AST 28 (14-36) IU/L ALT 35 H (<35) IU/L Alkaline Phosphatase 121 (38-126) U/L Total Protein 7.7 (6.3-8.2) g/dL Albumin 4.2 (3.5-5.0) g/dL Globulin 3.5 (1.7-4.1) g/dL Albumin/Globulin Ratio 1.2 (1.0-2.8) Lipase 22 L (23-300) U/L SARS-CoV-2 (PCR) (Negative) 09/03/22 Range/Units 14:01 WBC (4.5-11.0) X10^3/uL RBC (4.0-5.2) X10^6/uL Hgb (12.0-16.0) g/dL Hct (36-46) % MCV (80-100) fL MCH (26-34) PG MCHC (30-36) % RDW (11.6-14.8) % Plt Count (150-400) X10^3/uL Neut % (Auto) (50-75) % Lymph % (Auto) (25-40) % [place] % (Auto) (3-14) % Eos % (Auto) (2-4) % Baso % (Auto) (0-2) % Neut # (Auto) (9295-9467) /uL Lymph # (Auto) (5851-1265) /uL [place] # (Auto) (0-900) /uL Eos # (Auto) (0-450) /uL Baso # (Auto) (0-100) /uL Sodium (137-145) mmol/L Potassium (3.4-5.1) mmol/L Chloride (98-107) mmol/L Carbon Dioxide (22-32) mmol/L BUN (7-17) mg/dL Creatinine (0.52-1.04) mg/dL Estimated GFR (>60) mL/min BUN/Creatinine Ratio (6-22) Glucose (70-100) mg/dL Lactate (0.7-2.1) mmol/L Calcium (8.4-10.2) mg/dL Total Bilirubin (0.2-1.3) mg/dL AST (14-36) IU/L ALT (<35) IU/L Alkaline Phosphatase (38-126) U/L Total Protein (6.3-8.2) g/dL Albumin (3.5-5.0) g/dL Globulin (1.7-4.1) g/dL Albumin/Globulin Ratio (1.0-2.8) Lipase (23-300) U/L SARS-CoV-2 (PCR) Negative (Negative) Point of care testing: Urine Dip Bedside Urine Glucose Negative Bedside Urine Bilirubin - Negative Bedside Urine Ketone - Negative Urine Specific [place] 1.010 Bedside Urine Occult Blood - Negative Bedside Urine pH 7.0 Bedside Urine Protein - Negative Bedside Urine Urobilinogen - Negative Bedside Urine Nitrite - Negative Bedside Urine Leukocytes - Negative Esterase Imaging Data CT scan - abdomen/pelvis: Radiologist's Impression: Preliminary report postsurgical findings post cholecystectomy with fluid collection gas near surgical site worrisome for bile leak MDM Narrative Medical decision making narrative: Patient is a 52-year-old female host up day number 4 presenting to sudden onset of pain radiating up to her shoulder. She has no leukocytosis or fever blood work is reassuring without elevated bilirubin or liver enzymes. CT shows a fluid collection in her surgical site worrisome for a bile leak. 05:23 Dr. Johnson updated patient's symptoms test results revealed CT herself. Request HIDA scan to confirm bile leak. Patient reports that it does work for her only morphine she received 4 mg of morphine said that she was still in pain she received 4 more pain seems to be under control now. Awaiting for HIDA scan. Patient is a have to Dr. Jacobo further disposition <Kevin Jacobo, DO - Last Filed: 09/03/22 15:41> Lab Data Attestation: I reviewed the patient's lab results. Labs: Lab Results 09/03/22 09/03/22 09/03/22 Range/Units 04:25 04:25 04:25 WBC 9.3 (4.5-11.0) X10^3/uL RBC 4.14 (4.0-5.2) X10^6/uL Hgb 12.4 (12.0-16.0) g/dL Hct 37.0 (36-46) % MCV 89.3 (80-100) fL MCH 30.0 (26-34) PG MCHC 33.6 (30-36) % RDW 13.1 (11.6-14.8) % Plt Count 257 (150-400) X10^3/uL Neut % (Auto) 69.3 (50-75) % Lymph % (Auto) 19.6 L (25-40) % [place] % (Auto) 6.9 (3-14) % Eos % (Auto) 3.6 (2-4) % Baso % (Auto) 0.6 (0-2) % Neut # (Auto) 6400 (3597-6430) /uL Lymph # (Auto) 1800 (3839-6552) /uL [place] # (Auto) 600 (0-900) /uL Eos # (Auto) 300 (0-450) /uL Baso # (Auto) 100 (0-100) /uL Sodium 136 L (137-145) mmol/L Potassium 3.9 (3.4-5.1) mmol/L Chloride 103 (98-107) mmol/L Carbon Dioxide 25 (22-32) mmol/L BUN 13 (7-17) mg/dL Creatinine 0.72 (0.52-1.04) mg/dL Estimated GFR > 60 (>60) mL/min BUN/Creatinine Ratio 18.1 (6-22) Glucose 123 H (70-100) mg/dL Lactate 1.1 (0.7-2.1) mmol/L Calcium 8.5 (8.4-10.2) mg/dL Total Bilirubin 0.3 (0.2-1.3) mg/dL AST 24 (14-36) IU/L ALT 32 (<35) IU/L Alkaline Phosphatase 112 (38-126) U/L Total Protein 6.7 (6.3-8.2) g/dL Albumin 3.7 (3.5-5.0) g/dL Globulin 3.0 (1.7-4.1) g/dL Albumin/Globulin Ratio 1.2 (1.0-2.8) Lipase 37 (23-300) U/L SARS-CoV-2 (PCR) (Negative) 09/03/22 09/03/22 09/03/22 Range/Units 13:20 13:20 13:20 WBC 13.1 H (4.5-11.0) X10^3/uL RBC 4.42 (4.0-5.2) X10^6/uL Hgb 13.4 (12.0-16.0) g/dL Hct 40.2 (36-46) % MCV 90.9 (80-100) fL MCH 30.3 (26-34) PG MCHC 33.3 (30-36) % RDW 13.1 (11.6-14.8) % Plt Count 291 (150-400) X10^3/uL Neut % (Auto) 87.3 H (50-75) % Lymph % (Auto) 6.0 L (25-40) % [place] % (Auto) 6.3 (3-14) % Eos % (Auto) 0.2 L (2-4) % Baso % (Auto) 0.2 (0-2) % Neut # (Auto) 19311 H (2492-6106) /uL Lymph # (Auto) 800 L (0439-0593) /uL [place] # (Auto) 800 (0-900) /uL Eos # (Auto) 0 (0-450) /uL Baso # (Auto) 0 (0-100) /uL Sodium 137 (137-145) mmol/L Potassium 4.2 (3.4-5.1) mmol/L Chloride 102 (98-107) mmol/L Carbon Dioxide 27 (22-32) mmol/L BUN 8 (7-17) mg/dL Creatinine 0.64 (0.52-1.04) mg/dL Estimated GFR > 60 (>60) mL/min BUN/Creatinine Ratio 12.5 (6-22) Glucose 122 H (70-100) mg/dL Lactate (0.7-2.1) mmol/L Calcium 8.6 (8.4-10.2) mg/dL Total Bilirubin 0.7 (0.2-1.3) mg/dL AST 28 (14-36) IU/L ALT 35 H (<35) IU/L Alkaline Phosphatase 121 (38-126) U/L Total Protein 7.7 (6.3-8.2) g/dL Albumin 4.2 (3.5-5.0) g/dL Globulin 3.5 (1.7-4.1) g/dL Albumin/Globulin Ratio 1.2 (1.0-2.8) Lipase 22 L (23-300) U/L SARS-CoV-2 (PCR) (Negative) 09/03/22 Range/Units 14:01 WBC (4.5-11.0) X10^3/uL RBC (4.0-5.2) X10^6/uL Hgb (12.0-16.0) g/dL Hct (36-46) % MCV (80-100) fL MCH (26-34) PG MCHC (30-36) % RDW (11.6-14.8) % Plt Count (150-400) X10^3/uL Neut % (Auto) (50-75) % Lymph % (Auto) (25-40) % [place] % (Auto) (3-14) % Eos % (Auto) (2-4) % Baso % (Auto) (0-2) % Neut # (Auto) (2738-3966) /uL Lymph # (Auto) (3525-2900) /uL [place] # (Auto) (0-900) /uL Eos # (Auto) (0-450) /uL Baso # (Auto) (0-100) /uL Sodium (137-145) mmol/L Potassium (3.4-5.1) mmol/L Chloride (98-107) mmol/L Carbon Dioxide (22-32) mmol/L BUN (7-17) mg/dL Creatinine (0.52-1.04) mg/dL Estimated GFR (>60) mL/min BUN/Creatinine Ratio (6-22) Glucose (70-100) mg/dL Lactate (0.7-2.1) mmol/L Calcium (8.4-10.2) mg/dL Total Bilirubin (0.2-1.3) mg/dL AST (14-36) IU/L ALT (<35) IU/L Alkaline Phosphatase (38-126) U/L Total Protein (6.3-8.2) g/dL Albumin (3.5-5.0) g/dL Globulin (1.7-4.1) g/dL Albumin/Globulin Ratio (1.0-2.8) Lipase (23-300) U/L SARS-CoV-2 (PCR) Negative (Negative) Point of care testing: Urine Dip Bedside Urine Glucose Negative Bedside Urine Bilirubin - Negative Bedside Urine Ketone - Negative Urine Specific [place] 1.010 Bedside Urine Occult Blood - Negative Bedside Urine pH 7.0 Bedside Urine Protein - Negative Bedside Urine Urobilinogen - Negative Bedside Urine Nitrite - Negative Bedside Urine Leukocytes - Negative Esterase Imaging Data CT scan - abdomen/pelvis: Radiologist's Impression: PROCEDURE:? CT ABDOMEN PELVIS W CON ? INDICATIONS:? post emeka pain ? TECHNIQUE:? After the administration of oral and IV contrast, axial sections were acquired from the lung bases to the pubic symphysis.? Coronal and sagittal reformats were performed.? For radiation dose reduction, the following was used:? automated exposure control, adjustment of mA and/or kV according to patient size. ? COMPARISON:? None. ? FINDINGS:? Image quality:? Excellent.? ? Lung bases:? Bibasilar atelectasis.? Trace right pleural fluid.? Right middle lobe pulmonary nodule measuring 0.4 cm, (5/3). ? Heart:? No significant findings. ? ? ABDOMEN: Liver:? No focal lesion.? Trace perihepatic fluid.? Small focus of gas anterior to the liver. Gallbladder:? Surgically absent.? There is a fluid collection in the gallbladder fossa measuring 5.3 x 3.7 x 2.7 cm, estimated volume of 28 cc.? There is a small amount of gas within this collection. Biliary ducts:? No biliary ductal dilatation.? No pneumobilia. Pancreas:? No pancreatic ductal dilatation.? There is trace fluid density adjacent to the pancreatic head. Spleen:? No splenomegaly. Adrenal Glands:? No nodule. Kidneys and Ureters:? No hydronephrosis.? Enhance symmetrically. ? Stomach and Bowel:? Diverticulosis.? No diverticulitis identified.? There is a small amount of free fluid in the pelvic cul-de-sac.? This fluid is low-density.? Normal appendix.? No small bowel obstruction.? Stomach is not distended. Peritoneum:? No large volume ascites.? No gross pneumoperitoneum.? Trace free air in the upper abdomen is felt to be postsurgical in nature. ? Ventral Wall: ? No hernia.? Trace stranding in the subcutaneous fat in the right abdomen. ?No fluid collection.? Abdominal Nodes:? No retroperitoneal or mesenteric adenopathy by size criteria.? Vessels:? Aorta and inferior vena cava are normal in size.? ? PELVIS: Pelvic Organs:? Anteverted uterus.? ? ? Bladder:? No stone. Pelvic Nodes: No enlarged lymph nodes.? Miscellaneous: No inguinal hernias are seen. ? ? ? Bones:? No suspicious lesion.? Bilateral L5 pars defect.? Anterolisthesis of L5 on S1 measuring 0.3 cm. ? ? IMPRESSION: 1. Post cholecystectomy.? Small of fluid collection at the gallbladder fossa measuring at 5.3 cm in length and approximately 28 cc.? There is a small amount of gas within this collection.? Bile leak could have this appearance.? Consider further evaluation with HIDA scan.? ? 2. Trace right pleural effusion. ? 3. No small bowel obstruction. ? 4. Right middle lobe pulmonary nodule measuring 0.4 cm.? ? ? This report is concordant with the overnight preliminary interpretation. HIDA scan: Radiologist's Impression: PROCEDURE:? NM HIDA NO EJECTION FRACTION ? RADIOPHARMACEUTICAL:? 5.5 mCi Tc-99m mebrofenin IV.? ? INDICATIONS:? for post op bile leak ? TECHNIQUE:? Following intravenous administration of Tc-99m mebrofenin, sequential anterior abdominal images were obtained through at least 60 minutes.? ? COMPARISON:? [facility], CT, CT ABDOMEN PELVIS W CON, 09/03/2022, 4:37. ? FINDINGS:? There is normal tracer uptake by the liver.? Patient is status post cholecystectomy.? There is excretion of contrast into the subhepatic location in the region of the fluid collection seen by CT. ? IMPRESSION:? Bile leak into the subhepatic location. MDM Narrative Medical decision making narrative: Patient is a 52-year-old female host up day number 4 presenting to sudden onset of pain radiating up to her shoulder. She has no leukocytosis or fever blood work is reassuring without elevated bilirubin or liver enzymes. CT shows a fl uid collection in her surgical site worrisome for a bile leak. 05:23 Dr. Johnson updated patient's symptoms test results revealed CT herself. Request HIDA scan to confirm bile leak. Patient reports that it does work for her only morphine she received 4 mg of morphine said that she was still in pain she received 4 more pain seems to be under control now. Awaiting for HIDA scan. Patient is a have to Dr. Jacobo further disposition Dr Jacobo: Received turned over. Reviewed patient's history and physical exam. Patient did have a HIDA scan which is consistent with a bile leak. Repeat labs show LFTs that are relatively unchanged however she now has a leukocytosis with a left shift. She was started on antibiotics. Discussed the case with Dr. Johnson who was the operative provider last who stated that the patient needs transferred to a facility that has ERCP capability. I did discuss the case with Dr. Arreguin with GI and then Dr. Tellez at [facility] who accept the patient in transfer. Patient is stable for transport. Patient was informed of the incidental pulmonary nodule seen on imaging today and was informed that she needed to contact her primary doctor for follow-up of this. Discharge Plan Departure Patient Disposition: General Acute Hospital Clinical Impression: Incidental pulmonary nodule, > 3mm and < 8mm, Common bile duct leak Prescriptions: No Action hydrocodone-acetaminophen 5-325 mg tablet 1 tab PO Q6H PRN (Reason: pain) Qty: 20 0RF metoclopramide HCl 10 mg tablet 10 mg PO Q6H PRN (Reason: nausea and vomiting) Qty: 20 0RF estradiol 0.1 mg/24 hr patch semiweekly 1 patch topical 2XW Patient Comments: Apply 1 patch to skin every three days as directed sumatriptan succinate 50 mg tablet 50 mg PO Q12H PRN (Reason: Migraine Headache) Patient Comments: Take 1 tablet by mouth four times a day as needed for pain sumatriptan succinate 6 mg/0.5 mL solution 6 mg SUBCUT Q12H PRN (Reason: Migraine Headache) Patient Comments: Inject 1/2 ml subcutaneously twice a day as needed for pain progesterone micronized 200 mg capsule 200 mg PO DAILY Patient Comments: TAKE 1 CAPSULE BY MOUTH EVERY NIGHT FOR THE FIRST 10 DAYS OF THE MONTH ondansetron 4 mg tablet,disintegrating 4 mg PO Q6H PRN (Reason: Nausea) Patient Comments: Take 1 tablet By Mouth every six to eight hours omega-3 fatty acids Capsule 1,000 mg PO DAILY duloxetine 60 mg capsule,delayed release(DR/EC) 60 mg PO DAILY Patient Comments: Take 1 capsule By Mouth once a day Curcumin 95 % Powder 1 ea MISCELLANEOUS DAILY cholecalciferol (vitamin D3) [Vitamin D3] 125 mcg (5,000 unit) Tablet 125 mcg PO DAILY hydrocodone-acetaminophen 5-325 mg tablet 1 tab PO Q6H PRN (Reason: pain) Qty: 30 0RF Referrals: Shannan Bustos MD [Primary Care Provider] -
[2022-09-03 04:40] LABS: Add Manual Diff / Slide Review NO; Basophils Absolute Auto 100 /uL (0-100); Basophils Percent Auto 0.6 % (0-2); Eosinophils Absolute Auto 300 /uL (0-450); Eosinophils Percent Auto 3.6 % (2-4); Hemoglobin 12.4 g/dL (12.0-16.0); Lymphocytes Absolute Auto 1800 /uL (1100-4500); Lymphocytes Percent Auto 19.6 % (25-40); Mean Corpuscular HGB Conc 33.6 % (30-36); Mean Corpuscular Volume 89.3 fL (80-100); Monocytes Absolute Auto 600 /uL (0-900); Monocytes Percent Auto 6.9 % (3-14); Neutrophils Absolute Auto 6400 /uL (1500-7000); Neutrophils Percent Auto 69.3 % (50-75); Platelet Count 257 X10^3/uL (150-400); Red Blood Cell Count 4.14 X10^6/uL (4.0-5.2); Red Cell Distribution Width 13.1 % (11.6-14.8); White Blood Cell Count 9.3 X10^3/uL (4.5-11.0)
[2022-09-03 04:49] LABS: Alanine Aminotransferase 32 IU/L (<35); Albumin 3.7 g/dL (3.5-5.0); Albumin Globulin Ratio 1.2 (1.0-2.8); Alkaline Phosphatase 112 U/L (38-126); Aspartate Aminotransferase 24 IU/L (14-36); BUN Creatinine Ratio 18.1 (6-22); Bilirubin Total 0.3 mg/dL (0.2-1.3); Blood Urea Nitrogen 13 mg/dL (7-17); Calcium 8.5 mg/dL (8.4-10.2); Carbon Dioxide 25 mmol/L (22-32); Chloride 103 mmol/L (98-107); Estimated Glomerular Filt Rate > 60 mL/min (>60); Glucose 123 mg/dL (70-100); HEMOLYSIS < 15 (0-50); Lipase 37 U/L (23-300); Potassium 3.9 mmol/L (3.4-5.1); Sodium 136 mmol/L (137-145); Total Protein 6.7 g/dL (6.3-8.2)
--- NOTE | 2022-09-03 05:21 | DI.NM.S_ITS ---
PROCEDURE: NM HIDA NO EJECTION FRACTION RADIOPHARMACEUTICAL: 5.5 mCi Tc-99m mebrofenin IV. INDICATIONS: for post op bile leak TECHNIQUE: Following intravenous administration of Tc-99m mebrofenin, sequential anterior abdominal images were obtained through at least 60 minutes. COMPARISON: [facility], CT, CT ABDOMEN PELVIS W CON, 09/03/2022, 4:37. FINDINGS: There is normal tracer uptake by the liver. Patient is status post cholecystectomy. There is excretion of contrast into the subhepatic location in the region of the fluid collection seen by CT. IMPRESSION: Bile leak into the subhepatic location. Dictated by: Pat Chairez M.D. on 09/03/2022 at 13:03 Approved by: Pat Chairez M.D. on 09/03/2022 at 13:04
[2022-09-03] MEDS: SODIUM CHLORIDE 0.9% 1,000 ML 150 ML IV ×2 (05:22→13:45)
[2022-09-03 05:49] LABS: Lactate (Lactic Acid) 1.1 mmol/L (0.7-2.1)
[2022-09-03] MEDS: MORPHINE 2 MG/ML INJ 4 MG IV (08:07)
--- NOTE | 2022-09-03 08:23 | PC.NURSE ---
Patient reports poor pain control. Pt requested possibly Torodal, spoke to Dr. Jacobo and r/t potential surgery cannot give pt Torodal, pt educated and verbalizes understanding. At time of morphine administration, pt requesting 5mg instead of 4mg. Dr. Jacobo notified and aware. Pt parents at bedside. Pt and family updated on plan of care, currently plan for HIDA Scan at 1600.
[2022-09-03] MEDS: HYDROMORPHONE 1 MG INJ IV ×2 (11:33→16:10)
[2022-09-03 13:27] LABS: Add Manual Diff / Slide Review NO; Basophils Absolute Auto 0 /uL (0-100); Basophils Percent Auto 0.2 % (0-2); Eosinophils Absolute Auto 0 /uL (0-450); Eosinophils Percent Auto 0.2 % (2-4); Hematocrit 40.2 % (36-46); Hemoglobin 13.4 g/dL (12.0-16.0); Lymphocytes Absolute Auto 800 /uL (1100-4500); Mean Corpuscular HGB Conc 33.3 % (30-36); Mean Corpuscular Hemoglobin 30.3 PG (26-34); Mean Corpuscular Volume 90.9 fL (80-100); Monocytes Absolute Auto 800 /uL (0-900); Monocytes Percent Auto 6.3 % (3-14); Neutrophils Absolute Auto 11400 /uL (1500-7000); Neutrophils Percent Auto 87.3 % (50-75); Platelet Count 291 X10^3/uL (150-400); Red Blood Cell Count 4.42 X10^6/uL (4.0-5.2); Red Cell Distribution Width 13.1 % (11.6-14.8); White Blood Cell Count 13.1 X10^3/uL (4.5-11.0)
[2022-09-03 13:38] LABS: Alanine Aminotransferase 35 IU/L (<35); Albumin 4.2 g/dL (3.5-5.0); Albumin Globulin Ratio 1.2 (1.0-2.8); Alkaline Phosphatase 121 U/L (38-126); Aspartate Aminotransferase 28 IU/L (14-36); BUN Creatinine Ratio 12.5 (6-22); Bilirubin Total 0.7 mg/dL (0.2-1.3); Blood Urea Nitrogen 8 mg/dL (7-17); Calcium 8.6 mg/dL (8.4-10.2); Carbon Dioxide 27 mmol/L (22-32); Chloride 102 mmol/L (98-107); Estimated Glomerular Filt Rate > 60 mL/min (>60); Globulin 3.5 g/dL (1.7-4.1); Glucose 122 mg/dL (70-100); HEMOLYSIS < 15 (0-50); Potassium 4.2 mmol/L (3.4-5.1); Sodium 137 mmol/L (137-145); Total Protein 7.7 g/dL (6.3-8.2)
[2022-09-03] MEDS: SUMAtriptan 6 MG/0.5 ML VIAL SUBCUT (13:43)
[2022-09-03] MEDS: PIPERACILLIN/TAZO 4.5 GM in SODIUM CHLORIDE 0.9% 100 ML IV (13:44)
[2022-09-03 13:45] LABS: Lipase 22 U/L (23-300)
[2022-09-03 14:18] LABS: COVID19 -Nasal RAPID Negative (Negative)
== END 2022-09-03 16:30 | disposition short-term general hospital (02) ==
PROVIDERS: Emergency Medicine; Emergency Provider Emergency Medicine; PCP Family Medicine
DX: K83.8 Other specified diseases of biliary tract (principal); R91.1 Solitary pulmonary nodule; Z20.822 Contact with and (suspected) exposure to COVID-19
CPT/HCPCS: 36415; 74177; 78226; 80053; 81003; 83605; 83690; 85025; 87635; 96361; 96365; 96372; 96375; 96376; 99284; A9537; C9803; J1170; J2270; J2405; J2543; J3030; Q9967

== ENCOUNTER → 2022-10-29 14:00 | Outpatient (CLI) | payer OTHER, SELFPAY ==
--- NOTE | 2022-10-29 | DI.RAD.S_ITS ---
PROCEDURE: XR ABDOMEN 1V INDICATIONS: BILE LEAK TECHNIQUE: One view of the abdomen acquired. COMPARISON: [facility], CT, CT ABDOMEN PELVIS W CON, 09/03/2022, 4:37. FINDINGS: Surgical changes and devices: Metal clips projecting over the right upper quadrant likely from prior cholecystectomy. A metallic stent projects over the right upper quadrant, likely a bile duct stent. Bowel: No pathologically dilated gas-filled loops of bowel. Bones: No suspicious bony lesions. IMPRESSION: A metallic stent projects over the right upper quadrant of the abdomen, likely a bile duct stent. Dictated by: Papo Tang M.D. on 10/29/2022 at 18:24 Approved by: Papo Tang M.D. on 10/29/2022 at 18:26
--- NOTE | 2022-10-29 14:09 | DI.RAD.S_ITS ---
PROCEDURE: XR CHEST 2V INDICATIONS: pulmonary nodule TECHNIQUE: 2 views of the chest were acquired. COMPARISON: [facility], CT, CT CHEST ABD PEL W CON, 08/29/2022, 7:38. [facility], CT, CT ABDOMEN PELVIS W CON, 09/03/2022, 4:37. [facility], CR, XR ABDOMEN 1V, 10/29/2022, 14:34. FINDINGS: Surgical changes and devices: None. Lungs and pleura: No definite suspicious focal airspace opacity. No pleural effusions or pneumothorax. Mediastinum: Mediastinal contours are normal. Heart size is normal. Bones and chest wall: No suspicious bony abnormalities. Soft tissues appear unremarkable. IMPRESSION: Previously described small right middle lobe pulmonary nodule is not well visualized radiographically. CT could be obtained for follow-up if clinically indicated. Dictated by: Papo Tang M.D. on 10/29/2022 at 17:23 Approved by: Papo Tang M.D. on 10/29/2022 at 17:26
== END ==
PROVIDERS: PCP Family Medicine; Visit Provider Family Medicine
DX: K91.89 Other postprocedural complications and disorders of digestive system (principal); K83.8 Other specified diseases of biliary tract; R91.1 Solitary pulmonary nodule
CPT/HCPCS: 71046; 74018

== ENCOUNTER → 2023-06-13 13:19 | Outpatient (CLI) | payer OTHER, SELFPAY ==
--- NOTE | 2023-06-13 | DI.MG.S_ITS ---
BILATERAL DIGITAL SCREENING MAMMOGRAM 3D/2D WITH CAD: 06/13/2023 CLINICAL: Routine screening. Comparison is made to exams dated: 05/23/2022 mammogram, 05/23/2022 mammogram - [facility], and 05/11/2021 mammogram - outside location. Both breasts are almost entirely fatty (category a/<25% glandular tissue). Current study was also evaluated with a Computer Aided Detection (CAD) system. There is a focal asymmetry in the right breast at 2 o'clock posterior depth. There is architectural distortion associated with the focal asymmetry. No other significant masses, calcifications, or other findings are seen in either breast. IMPRESSION: INCOMPLETE: NEEDS ADDITIONAL IMAGING EVALUATION The focal asymmetry with distortion in the right breast is indeterminate. Additional views with possible ultrasound are recommended. Based on the Tyrer Cuzick model (a risk assessment model) the patient's lifetime risk is 6.2% and her 10 year risk is 1.7%. According to the ACR, ACS, and NCCN guidelines, an annual breast MRI exam along with mammogram is recommended if the patient's lifetime risk is 20% or greater. This exam was interpreted at Station ID: [id number]. NOTE: For mammograms, a report in lay terms will be sent to the patient. Approximately 15% of breast malignancies will not be visualized mammographically. In the management of a palpable breast mass, a negative mammogram must not discourage biopsy of a clinically suspicious lesion. Electronically Signed By: Doyle Ibarra M.D. lc/:06/13/2023 16:06:23 letter sent: Additional Imaging Needed ACR BI-RADS Category 0: Incomplete 3340F
== END ==
LOC: MAMMO 13:20
PROVIDERS: PCP Family Medicine; Referring Provider Family Medicine; Visit Provider Family Medicine
DX: Z12.31 Encounter for screening mammogram for malignant neoplasm of breast (principal)
CPT/HCPCS: 77063; 77067

== ENCOUNTER → 2023-10-01 13:43 | Outpatient (CLI) | payer OTHER, SELFPAY ==
--- NOTE | 2023-10-01 13:44 | DI.US.S_ITS ---
ULTRASOUND OF RIGHT BREAST AND AXILLA: 10/01/2023 CLINICAL: Patient returns today for focal asymmetry with distortion in the right breast. Comparison is made to exams dated: 06/13/2023 mammogram, 05/23/2022 mammogram - [facility], and 05/11/2021 mammogram - outside location. Real-time ultrasound of the right breast axilla was performed. Jurado scale images of the real-time examination were reviewed. No significant abnormalities were seen sonographically in the right breast. No abnormalities seen in the right axilla. IMPRESSION: SUSPICIOUS OF MALIGNANCY There is no sonographic abnormality seen in the right breast to correspond with the mammography finding (focal asymmetry with architectural distortion) in the middle-posterior third depth of the right breast upper inner quadrant. However, finding is suspicious for malignancy. Recommend stereotactic guided right breast biopsy of this focal asymmetry. No sonographic abnormalities identified in the axilla. No axillary adenopathy. Findings and recommendations were discussed with the patient telephonically by Dr. House during today's examination. This exam was interpreted at Station ID: [id number]. Electronically Signed By: Dwayne House M.D. aty/:10/01/2023 16:57:00 Entry: - 10/02/2023 16:42:05 letter sent: Biopsy Required Ultrasound BI-RADS: 4 Suspicious for malignancy
--- NOTE | 2023-10-01 13:45 | DI.MG.S_ITS ---
UNILATERAL RIGHT DIGITAL DIAGNOSTIC MAMMOGRAM 3D/2D WITH ADDITIONAL VIEWS: 10/01/2023 CLINICAL: Patient returns today for focal asymmetry with distortion in the right breast. Comparison is made to exams dated: 06/13/2023 mammogram, 05/23/2022 mammogram - [facility], and 05/11/2021 mammogram - outside location. The right breast is almost entirely fatty (category a/<25% glandular tissue). Redemonstration of previously described focal asymmetry in the right breast at 1 o'clock middle depth. This is seen in additional views. There is architectural distortion associated with the focal asymmetry. No other significant masses or calcifications are seen in the breast. IMPRESSION: INCOMPLETE: NEEDS ADDITIONAL IMAGING EVALUATION The focal asymmetry in the right breast is indeterminate. An ultrasound is recommended for further evaluation and is scheduled to immediately follow this examination. Based on the Tyrer Cuzick model (a risk assessment model) the patient's lifetime risk is 6.2% and her 10 year risk is 1.7%. According to the ACR, ACS, and NCCN guidelines, an annual breast MRI exam along with mammogram is recommended if the patient's lifetime risk is 20% or greater. This exam was interpreted at Station ID: [id number]. NOTE: For mammograms, a report in lay terms will be sent to the patient. Approximately 15% of breast malignancies will not be visualized mammographically. In the management of a palpable breast mass, a negative mammogram must not discourage biopsy of a clinically suspicious lesion. Electronically Signed By: Dwayne House M.D. aty/:10/01/2023 16:52:11 ACR BI-RADS Category 0: Incomplete 3340F
== END ==
LOC: MAMMO 13:43
PROVIDERS: PCP Family Medicine; Referring Provider Family Medicine; Visit Provider Family Medicine
DX: R92.8 Other abnormal and inconclusive findings on diagnostic imaging of breast (principal); N64.89 Other specified disorders of breast; R92.311 Mammographic fatty tissue density, right breast
CPT/HCPCS: 76642; 77065; G0279

== ENCOUNTER → 2023-10-14 08:24 | Outpatient (CLI) | payer OTHER, SELFPAY ==
--- NOTE | 2023-10-14 08:26 | DI.CT.S_ITS ---
PROCEDURE: CT CHEST WO CON INDICATIONS: nodule follow up from 1 year prior TECHNIQUE: Noncontrast 5 mm thick sections acquired from the pulmonary apices to the posterior costophrenic angles. 1 mm lung window, 5 mm thick coronal and sagittal and 7 mm axial MIP reformats were then acquired. For radiation dose reduction, the following was used: automated exposure control, adjustment of mA and/or kV according to patient size. COMPARISON: CT abdomen pelvis 09/03/2022, CT chest abdomen pelvis 08/29/2022. FINDINGS: Image quality: Diagnostic. Lower Neck: No enlarged lymph nodes. Thyroid: No thyroid nodules which require sonographic follow up, per consensus guidelines. Axillae: No enlarged lymph nodes. Chest Wall: Unremarkable. Bones: Unremarkable. Lungs and Pleura: No pneumothorax or pleural effusions. No consolidation. Stable right middle lobe juxtapleural nodule measuring 4-5 mm since August 2022. Additional scattered smaller pulmonary nodules are stable. No new or enlarging pulmonary nodule. Heart: Heart size is normal. No pericardial effusion. Thoracic Vessels: The aorta and pulmonary arteries demonstrate normal size. Mediastinum and Kaitlin: No enlarged lymph nodes. Esophagus: No wall thickening. No hiatal hernia. Upper Abdomen: Status post cholecystectomy. IMPRESSION: Scattered pulmonary nodules with the largest measuring 4-5 mm in the right middle lobe, stable since August 2022. No new or enlarging pulmonary nodule. Approved by: Sofia Shannon M.D.,Ph.D. on 10/14/2023 at 18:11
== END ==
LOC: CT 08:25
PROVIDERS: PCP Family Medicine; Referring Provider Family Medicine; Visit Provider Family Medicine
DX: R91.8 Other nonspecific abnormal finding of lung field (principal); Z90.49 Acquired absence of other specified parts of digestive tract
CPT/HCPCS: 71250

== ENCOUNTER → 2024-06-04 08:56 | Outpatient (CLI) | payer BC, SELFPAY ==
--- NOTE | 2024-06-04 | DI.MG.S_ITS ---
BILATERAL DIGITAL DIAGNOSTIC MAMMOGRAM 3D/2D: 06/04/2024 CLINICAL: First mammo s/p right lumpectomy. Comparison is made to exams dated: 06/13/2023 mammogram, 05/23/2022 mammogram, and 05/23/2022 mammogram - [facility]. The breasts are almost entirely fatty (category a/<25% glandular tissue). The patient is status post reduction both breasts. The patient is status post partial mastectomy right breast. There is skin thickening in the right breast secondary to radiation therapy. No other significant masses, calcifications, or other findings are seen in either breast. IMPRESSION: BENIGN There is no mammographic evidence of malignancy. Expected post surgical and post treatment changes of the breast. A 1 year screening mammogram is recommended; however, shorter interval surveillance can be considered at the direction of treating oncologic/surgical team. Findings and recommendations were conveyed to the patient during today's evaluation. This exam was interpreted at Station ID: [id number]. NOTE: For mammograms, a report in lay terms will be sent to the patient. Approximately 15% of breast malignancies will not be visualized mammographically. In the management of a palpable breast mass, a negative mammogram must not discourage biopsy of a clinically suspicious lesion. Electronically Signed By: Dwayne House M.D. aty/:06/04/2024 13:56:59 letter sent: Normal Exam ACR BI-RADS Category 2: Benign
== END ==
PROVIDERS: PCP Family Medicine; Referring Provider Internal Medicine Hematology & Oncology; Visit Provider Internal Medicine Hematology & Oncology
DX: C50.211 Malignant neoplasm of upper-inner quadrant of right female breast (principal); Z17.0 Estrogen receptor positive status [ER+]
CPT/HCPCS: 77066; G0279

== ENCOUNTER → 2024-07-20 09:03 | Outpatient (CLI) | payer BC, SELFPAY ==
[2024-07-20 10:27] LABS: Add Manual Diff / Slide Review NO; Basophils Absolute Auto 0 /uL (0-100); Basophils Percent Auto 0.6 % (0-2); Eosinophils Absolute Auto 100 /uL (0-450); Eosinophils Percent Auto 3.3 % (2-4); Hematocrit 40.4 % (36-46); Hemoglobin 13.5 g/dL (12.0-16.0); Lymphocytes Absolute Auto 1200 /uL (1100-4500); Lymphocytes Percent Auto 30.5 % (25-40); Mean Corpuscular HGB Conc 33.5 % (30-36); Mean Corpuscular Hemoglobin 30.9 PG (26-34); Mean Corpuscular Volume 92.1 fL (80-100); Monocytes Absolute Auto 300 /uL (0-900); Monocytes Percent Auto 8.5 % (3-14); Neutrophils Absolute Auto 2200 /uL (1500-7000); Neutrophils Percent Auto 57.1 % (50-75); Platelet Count 213 X10^3/uL (150-400); Red Blood Cell Count 4.39 X10^6/uL (4.0-5.2); Red Cell Distribution Width 13.8 % (11.6-14.8); White Blood Cell Count 3.9 X10^3/uL (4.5-11.0)
[2024-07-20 10:37] LABS: Hemoglobin A1C% w Est Avg Glu 5.2 % (4.0-6.0)
[2024-07-20 10:46] LABS: Alanine Aminotransferase 21 IU/L (<35); Albumin 4.2 g/dL (3.5-5.0); Albumin Globulin Ratio 1.6 (1.0-2.8); Alkaline Phosphatase 100 U/L (38-126); Aspartate Aminotransferase 29 IU/L (14-36); BUN Creatinine Ratio 14.6 (6-22); Bilirubin Total 0.5 mg/dL (0.2-1.3); Blood Urea Nitrogen 12 mg/dL (7-17); Calcium 9.1 mg/dL (8.4-10.2); Carbon Dioxide 21 mmol/L (22-32); Chloride 109 mmol/L (98-107); Cholesterol 199 mg/dL (140-199); Estimated Glomerular Filt Rate > 60 mL/min (>60); Globulin 2.6 g/dL (1.7-4.1); Glucose 98 mg/dL (70-100); HDL Cholesterol 63 mg/dL (40-60); HEMOLYSIS < 15 (0-50); LDL Cholesterol Calculated 98 mg/dL (<100); Potassium 4.3 mmol/L (3.4-5.1); Sodium 139 mmol/L (137-145); Total Protein 6.8 g/dL (6.3-8.2); Triglycerides 191 mg/dL (35-150)
[2024-07-20 10:53] LABS: Vitamin D 25 Hydroxy (D3) 71.2 ng/mL (30.0-100.0)
[2024-07-20 10:55] LABS: Free T3, Triiodothyronine Free 3.97 pg/mL (2.77-5.27); Free T4, Direct Thyroxine 0.88 ng/dL (0.78-2.19)
[2024-07-20 11:08] LABS: Thyroid Stimulating Hormone 1.57 uIU/mL (0.47-4.68)
[2024-07-20 11:28] LABS: Vitamin B12 465 pg/mL (239-931)
== END ==
LOC: LAB 09:04
PROVIDERS: PCP Family Medicine; Referring Provider Family Medicine; Visit Provider Family Medicine
DX: R53.83 Other fatigue (principal); E66.9 Obesity, unspecified
CPT/HCPCS: 36415; 80053; 80061; 82306; 82607; 83036; 84439; 84443; 84481; 85025